=== PATIENT | male | born 1990 | race Caucasian/White ===

== ENCOUNTER 2021-12-02 23:24 | Emergency (ER) | payer OTHER, SELFPAY ==
[2021-12-02 23:36] VITALS: BP 134/67; PULSE 109; RESP 16; TEMP 36.7; O2SAT 98
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
[2021-12-03] MEDS: TETANUS,DIPHTHERIA,AC PERTUSSIS ADULT (0.5 ML) BOOSTRIX IM (00:04)
== END 2021-12-03 00:30 | disposition home or self-care (01) ==
PROVIDERS: Emergency Provider Emergency Medicine
DX: S61.402A Unspecified open wound of left hand, initial encounter (principal); Z23 Encounter for immunization; W26.8XXA Contact with other sharp object(s), not elsewhere classified, initial encounter
CPT/HCPCS: 90471; 90715; 99282

== ENCOUNTER 2022-05-28 15:43 | Emergency (ER) | payer OTHER, SELFPAY ==
--- NOTE | ~2022-05-28 | US_ITS ---
EXAMINATION: US scrotum doppler DATE: 05/28/2022 17:23 INDICATION: Testicular torsion. TECHNIQUE: Grayscale and Doppler ultrasound images of the testes were obtained. COMPARISON: None. FINDINGS: The right testis measures 5.2 x 2.0 x 2.8 cm. The left testis measures 4.9 x 2.0 x 2.8 cm. There is normal vascular flow to both testes. The right epididymis is normal with normal vascular everett w. The left epididymis is normal with normal vascular flow. There is no varicocele or hydrocele. IMPRESSION: 1. Normal testes. Reviewed, dictated and finalized at location A. IMPRESSION: 1. Normal testes.
[2022-05-28 15:44] VITALS: BP 122/74; PULSE 98; RESP 16; TEMP 37.1; O2SAT 99
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
[2022-05-28 16:57] LABS: Appearance Urine Clear (Clear); Bilirubin Urine Negative (Negative); Color Urine Yellow (Yellow); Glucose Urine UA Negative (Negative); Ketones Urine Negative (Negative); Leukocyte Esterase Ur Negative LEU/UL (Negative); Nitrate Urine Negative (Negative); Protein Urine Negative (Negative); Specific Grav Ur 1.015 (1.001-1.035); Urobilinogen Urine 0.2 mg/dL (<2.0)
[2022-05-28 17:00] LABS: Add Urine Microscopic? YES; Blood Urine Trace-Intact (Negative)
[2022-05-28 17:02] LABS: Mucus Urine Rare /lpf; RBC Urine 0-2 /hpf (0-2); WBC Urine 0-3 /hpf
== END 2022-05-28 18:01 | disposition home or self-care (01) ==
LOC: ANHED 17:40
PROVIDERS: Emergency Provider Nurse Practitioner Family
DX: N50.812 Left testicular pain (principal); W51.XXXA Accidental striking against or bumped into by another person, initial encounter; Y93.75 Activity, martial arts
CPT/HCPCS: 76870; 81001; 93976; 99284

== ENCOUNTER 2023-04-24 21:57 | Emergency (ER) | payer OTHER, SELFPAY ==
[2023-04-24 21:58] VITALS: BP 137/89; PULSE 87; RESP 16; TEMP 36.4; O2SAT 99
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
[2023-04-24 23:19] LABS: HIV 1/2 Ab P24 Ag Result Negative (Negative)
[2023-04-24 23:26] LABS: Basophils Absolute Auto 0.1 K/mm3 (0.0-0.1); Basophils Percent Auto 0.7 % (0.2-1.2); Eosinophils Percent Auto 0.1 % (0-4.4); Hematocrit 41.8 % (42.0-52.0); Hemoglobin 14.7 g/dL (14.0-18.0); Immature Granulocyte Absolute 0.02 K/mm3 (0.00-0.031); Immature Granulocyte Percent A 0.2 % (0-0.5); Lymphocytes Absolute Auto 2.29 K/mm3 (0.9-3.2); Lymphocytes Percent Auto 25.9 % (18.3-44.2); Mean Corpuscular HGB Conc 35.2 g/dl (32-36); Mean Corpuscular Hemoglobin 32.4 pg (26-34); Mean Corpuscular Volume 92.1 fl (80-100); Mean Platelet Volume 8.6 fl (7.4-10.4); Monocytes Absolute Auto 0.5 K/mm3 (0.1-0.6); Monocytes Percent Auto 5.1 % (2.6-8.5); Platelet Count Result 314 k/mm3 (150-375); Red Blood Count 4.54 M/mm3 (4.6-6.20); White Blood Count 8.8 K/mm3 (4.5-10.0)
[2023-04-24 23:46] LABS: Alanine Aminotransferase 40 U/L (6-50); Albumin Level 4.8 g/dL (3.5-5.1); Alkaline Phosphatase 52 U/L (38-126); Anion Gap 9 mmol/L (8-16); Aspartate Amino Transferase 36 U/L (17-59); Bilirubin,Total 0.5 mg/dL (0.2-1.3); Blood Urea Nitrogen 15 mg/dL (9-20); Calcium 9.2 mg/dL (8.4-10.2); Carbon Dioxide 27 mmol/L (22-30); Chloride 104 mmol/L (98-107); Estimated CRCL calculation 85 ml/min; Estimated Glomerular Filt Rate > 60; Glucose 93 mg/dL (65-110); Potassium 4.1 mmol/L (3.4-5.0); Sodium 140 mmol/L (137-145)
[2023-04-25 00:43] LABS: Hepatitis B Surface Anti Res Positive; Hepatitis C Virus Antibody Negative (Negative)
== END 2023-04-25 00:08 | disposition home or self-care (01) ==
PROVIDERS: Emergency Provider Physician Assistant; PCP Physician Assistant Medical
DX: Z20.6 Contact with and (suspected) exposure to human immunodeficiency virus [HIV] (principal)
CPT/HCPCS: 36415; 80053; 85025; 86703; 86706; 86803; 99283; G0432